=== PATIENT | female | born 1990 | race African-American/Black ===

== ENCOUNTER 2017-06-30 13:24 | Emergency (ER) | payer OTHER, SELFPAY ==
[2017-06-30] MEDS ORDERED: Ketorolac Tromethamine 30 MG/ML VIAL ONE (16:09)
[2017-06-30] MEDS ORDERED: predniSONE 20 MG TAB ONE (16:09)
--- NOTE | 2017-06-30 17:17 | RAD ---
THREE VIEWS OF THE LUMBAR SPINE: INDICATIONS: Worsening back pain. COMPARISON: None. FINDINGS: There are five lumbar type vertebrae. Vertebral body heights and disk spaces are preserved. The SI joints are normal appearing. IMPRESSION: The lumbar spine is radiographically normal. No acute osseous abnormality is evident. POS: POLY
== END 2017-06-30 18:05 | disposition home or self-care (01) ==
LOC: ERS 13:24
DX: M54.17 Radiculopathy, lumbosacral region (principal); E66.01 Morbid (severe) obesity due to excess calories; I10 Essential (primary) hypertension
CPT/HCPCS: 72100; 96372; J1885; J7506

== ENCOUNTER 2017-09-21 22:21 | Inpatient (IN) | payer SELFPAY ==
[2017-09-22 00:04] LABS: ALT (SGPT) 15 U/L (8-55); AST (SGOT) 18 U/L (5-34); Alkaline Phosphatase 91 U/L (40-150); Anion Gap 14 mmol/L (10-20); BUN (Urea Nitrogen) 11 mg/dL (7.0-18.7); Bilirubin, Total 0.6 mg/dL (0.2-1.2); CK (CPK) 114 U/L (29-168); Calc. Creatinine Clearance 0 mL/min (70-130); Carbon Dioxide 27 mmol/L (22-29); Chloride 101 mmol/L (98-107); Estimated GFR-MDRD Greater than 90; Globulin 4.5 g/dL (2.4-3.5); Protein, Total 8.3 g/dL (6.0-8.3)
[2017-09-22 00:12] LABS: #Basophils 0.1 thou/uL (0.0-0.2); #Eosinphils 0.2 thou/uL (0.0-0.7); #Lymphocytes 1.7 thou/uL (1.20-3.40); #Monocytes 0.7 thou/uL (0.11-0.59); #Neutrophils 6.3 thou/uL (1.40-6.50); %Basophils 0.5 % (0.0-1.0); %Eosinophils 2.4 % (0.0-10.0); %Lymphocytes 19.2 % (21.0-51.0); %Monocytes 8.2 % (0.0-10.0); Hematocrit 30.7 % (36.0-47.0); Hypochromia SLIGHT = 6-15 cells (100X) (0-5/hpf); Microcytosis SLIGHT = 6-15 cells (100X) (0-5/hpf); Red Blood Cell (RBC) Count 4.29 mill/uL (4.20-5.40)
[2017-09-22 00:14] LABS: Troponin I Less than 0.010 ng/mL (< 0.028)
[2017-09-22] MEDS ORDERED: Heparin 10,000 UNITS/ 10 ML VIAL SLOW IVP SCH (02:00)
[2017-09-22] MEDS ORDERED: Heparin 25,000 units/D5W 500 ML IV SCH (02:00)
[2017-09-22 02:25] LABS: PTT 30.5 SEC (22.9-36.1); Prothrombin Time 13.4 SEC (12.0-14.7)
[2017-09-22] MEDS ORDERED: Ondansetron ODT 4 MG TAB SL PRN (03:23)
[2017-09-22] MEDS ORDERED: Acetaminophen 325 MG TAB PO PRN (03:23)
[2017-09-22] MEDS ORDERED: Ondansetron HCl/PF 4 MG/2 ML Vial IVP PRN ×2 (03:23→03:55)
[2017-09-22] MEDS ORDERED: Milk Of Magnesia 30 ML UDCUP PO PRN (03:55)
[2017-09-22] MEDS ORDERED: Bisacodyl 10 MG SUPP PR PRN (03:55)
[2017-09-22] MEDS ORDERED: Senokot 8.6 MG TAB PO PRN (03:55)
[2017-09-22] MEDS ORDERED: Calcium Carbonate 500 MG ChewTAB PO PRN (03:55)
[2017-09-22] MEDS ORDERED: Ondansetron ODT 4 MG TAB PO PRN (03:55)
[2017-09-22] MEDS ORDERED: hydrALAZINE 20 MG/ML VIAL SLOW IVP PRN (04:00)
--- NOTE | 2017-09-22 04:27 | HP ---
CHIEF COMPLAINT: Right leg swelling with pain of three weeks' duration. HISTORY OF PRESENT ILLNESS: Patient is a 27-year-old -[place] female with morbid obesity, pr esented to the emergency room with 3 weeks onset of right lower extremity swelling with pain that got worse over the last 2 to 3 days. The pain is sharp in nature 7/10, worse on movement, it is more or less constant. Over the last 24 to 48 hours. She also noticed worsening shortness of breath mainly on mild to moderate exertion. She denies any chest pain, palpitations, lightheadedness, dizziness. No trauma or history of blood clots reported. She denies recent immobilization; however, she is not very active. In the emergency room, initial vital signs showed temperature of 98.1, respirations 20, pulse rate of 116 with a blood pressure of 160/90 with O2 saturation of 95% on room air. Her EKG showed sinus tac hycardia with heart rate 116 with S1, Q3, T3 pattern. Right lower extremity Doppler was positive for DVT involving the distal right femoral vein, popliteal vein and posterior tibial vein. CT angiogram of the chest could not be done due to body habitus. She was started on heparin drip. PAST MEDICAL HISTORY: Hypertension, diet controlled, morbid obesity. Her weight is 232 kilograms. PAST SURGICAL HISTORY: 1. Laparoscopic abdominal surgery. 2. x2. ALLERGIES: Patient denies any drug allergies. CURRENT HOME MEDICATIONS: [id number] iron. SOCIAL HISTORY: Patient currently lives at home. Denies any alcohol, tobacco, or drug use. FAMILY HISTORY: Negative for premature coronary artery disease or hypercoagulable state. REVIEW OF SYSTEMS: The following complete review of systems was negative, unless otherwise mentioned in the HPI or below: CONSTITUTIONAL: Weight loss or gain, ability to conduct usual activities. SKIN: Rash, itching. EYES: Double vision, pain. ENT/MOUTH: Nose bleeding, neck stiffness, pain, tenderness. CARDIOVASCULAR: Palpitations, dyspnea on exertion, orthopnea. RESPIRATORY: Shortness of breath, wheezing, cough, hemoptysis, fever or night sweats. GASTROINTESTINAL: Poor appetite, abdominal pain, heartburn, nausea, vomiting, constipation, or diarr hea. GENITOURINARY: Urgency, frequency, dysuria, nocturia. MUSCULOSKELETAL: Pain, swelling. NEUROLOGIC/PSYCHIATRIC: Anxiety, depression. ALLERGY/IMMUNOLOGIC: Skin rash, bleeding tendency. PHYSICAL EXAMINATION: VITAL SIGNS: As discussed above. GENERAL: A 27-year-old morbidly obese female sitting on the side of the bed in no apparent distress. HEENT: Atraumatic, normocephalic, sclerae are anicteric. Moist mucous membranes. No oral lesion. NECK: Supple, no JVD, no carotid bruit. LUNGS: Clear to auscultation bilaterally, diminished air entry at bases. No wheezing or rales. HEART: S1, S2 present. Tachycardic, no rubs, gallops, or murmurs appreciated. ABDOMEN: Soft, nontender, bowel sounds present. EXTREMITIES: No calf tenderness on the left. Right lower extremity shows edema, which is 2+ with da rkening of the skin close to her ankle. Pedal pulses were palpable. SKIN: As discussed above. LYMPH NODES: No palpable lymph nodes in the neck. PERIPHERAL VASCULAR: Radial pulses palpable bilaterally. MUSCULOSKELETAL: No joint swelling or tenderness. NEUROLOGIC: Grossly nonfocal, moves all four extremities. PSYCHIATRY: Alert, awake, oriented x3. LABORATORY AND X-RAY FINDINGS: CBC showed WBC 9 with hemoglobin 8.9, hematocrit 30.7, platelet count of 278. PT, INR, PTT in normal range. D-dimer was 3.17. Chemistries showed sodium 138, potassium 3.7, chloride 101, bicarb 27, BUN was 11, creatinine 0.77. Troponins were normal. EKG by my review as discussed above. Chest x-ray by my review was negative for infiltrate. Venous Doppler as discuss ed above. IMPRESSION: 1. Suspected pulmonary embolism. 2. Right lower extremity deep vein thrombosis. 3. Abnormal electrocardiogram. 4. Morbid obesity. 5. Chronic anemia. 6. Hypochromic microcytic secondary to iron deficiency anemia. Patient denies any menorrhagia. 7. Hypertension, diet controlled. 8. Morbid obesity. 9. Elevated D-dimer. PLAN: The patient will be monitored on the telemetry unit. She has been started on heparin drip. [facility] park will be consulted. A CT scan of the chest or VQ scan is probably not possible due to body h abitus. We will continue heparin drip. She is currently on heparin drip. For this reason, thrombos is profile will not be done. We will check iron profile. Risks not limited to life threatening blee ding from anticoagulation was discussed with the patient. She stated understanding.
[2017-09-22 06:00] LABS: Iron 21 ug/dL (50-170)
--- NOTE | 2017-09-22 07:37 | RAD ---
RADIOGRAPH CHEST SINGLE VIEW: COMPARISON: 06/30/16. INDICATION: Short of breath. FINDINGS: There is no lobar consolidation identified. Cardiomediastinal silhouette is stable, accentuated by portable technique. Chest is similar in appearance to prior exam. IMPRESSION: No significant interval change. POS: C
--- NOTE | 2017-09-22 07:39 | ULT ---
PRELIMINARY REPORT/[facility]/EMERGENCY AFTER HOURS PROCEDURE: Addendum created by Mauro Su MD on 09/22/2017 1:12 AM Central Time ([place] & [place]) Findings discussed with Andrew Brooks MD at time of interpretation. Initial Report created on 09/22/2017 1:02 AM Central Time ([place] & [place]) EXAM: US Duplex Right Lower Extremity Veins EXAM DATE/TIME: Exam ordered 09/22/2017 12:02 AM CLINICAL HISTORY: 27 years old, female; Pain and signs and symptoms; Edema, localized; Lower extremity, right; Leg, low er; Patient HX: Rt leg pain/edema x 1 month TECHNIQUE: Real-time ultrasound scan of the veins of the right lower extremity with color Doppler flow, spectral waveform analysis and compression. COMPARISON: No relevant prior studies available. FINDINGS: Deep veins: Partially occlusive thrombosis of the distal right femoral vein, popliteal vein, and post erior tibial vein. Common femoral vein and proximal and mid superficial femoral vein are normal. Superficial veins: Unremarkable. No thrombus in the visualized great saphenous vein. Soft tissues: No acute findings. No popliteal cyst. Other findings: Study technically difficult due to patient body habitus. IMPRESSION: 1. Study technically difficult due to patient body habitus. 2. Partially occlusive thrombosis of the distal right femoral vein, popliteal vein, and posterior tib ial vein. Thank you for allowing us to participate in the care of your patient. Dictated and Authenticated by: Mauro Su MD 09/22/2017 1:02 AM Central Time ([place] & [place]) FINAL REPORT RIGHT LOWER EXTREMITY DOPPLER VENOUS ULTRASOUND: Date: 09/22/17 FINDINGS/IMPRESSION: I agree with the above provided preliminary interpretation from [facility]. Partially occlusive thrombus is demonstrated at the venous structures of the right lower extremity, as detailed above.
[2017-09-22 08:11] VITALS: BMI 79.5
[2017-09-22] MEDS: Ferrous Sulfate 325 MG TAB PO SCH ×2 (08:14→17:21)
[2017-09-22] MEDS: Docusate 100 MG CAP PO SCH ×2 (08:14→22:11)
[2017-09-22] MEDS: Famotidine 20 MG TAB PO SCH ×2 (08:14→22:11)
--- NOTE | 2017-09-22 09:11 | PDOC.EVN ---
Event Note - Event Note Event Note: Chart reviewed. Pt seen. No chest pain now. Will follow.
--- NOTE | 2017-09-22 11:50 | CON ---
DATE OF CONSULTATION: 09/22/2017 HISTORY: She is a morbidly obese 27-year-old female who presented to the ER with ri ght calf pain of about 3 weeks duration. She also complained of some shortness of breath at that diogo e. She is 231 pounds. Ultrasound of the leg showed a partial occlusion of the right femoral vein. She was started on IV heparin. Because of her morbid obesity she could not have either CT on a [employer] sc an done. Though she says she has been relatively healthy. She works for a [employer]. She gained weight aft er she had her last child who is 3 years old. Nonsmoker, no history of asthma or TB. PAST MEDICAL HISTORY: Pertinent for hypertension, anemia. PAST SURGICAL HISTORY: Lap, x2. MEDICATIONS: From home, an unknown blood pressure medication. ALLERGIES: None. SOCIAL/FAMILY HISTORY: Unremarkable. PHYSICAL EXAMINATION: GENERAL: She appears to be in no distress. VITAL SIGNS: Sats are 94% on room air, temperature 98, pulse 102, blood pressure 130/70. CHEST: Reveals decreased breath sounds, no wheezing. CARDIAC: Normal S1, S2, no gallops. ABDOMEN: Soft, no masses. LABORATORY: White count 9000, H&H 10 and 30, platelet count is 278. Electrolytes are normal. Ultrasound as noted, the right leg shows partially occlusive thrombus of the distal right femoral vei n. Left leg was unremarkable. IMPRESSION: 1. Right leg deep venous thrombosis. 2. Morbid obesity. 3. Hypertension. PLAN: She is too big to undergo a CT of the chest. Though we will call them again to see whether she will qualify. She is going to need a minimum of 6 months anticoagulation. I will discuss and follow.
[2017-09-22] MEDS: Heparin 25,000 units/D5W 500 ML IVPB SCH ×2 (12:32→23:02)
[2017-09-22] MEDS: Heparin 10,000 UNITS/ 10 ML VIAL SLOW IVP SCH (12:53)
[2017-09-22 18:25] LABS: PTT 211.6 SEC (22.9-36.1)
[2017-09-22 21:00] LABS: PTT 51.3 SEC (22.9-36.1); Prothrombin Time 14.3 SEC (12.0-14.7)
[2017-09-22] MEDS: Acetaminophen 325 MG TAB PO PRN (22:22)
[2017-09-23 03:21] LABS: #Eosinphils 0.2 thou/uL (0.0-0.7); #Lymphocytes 2.9 thou/uL (1.20-3.40); #Neutrophils 6.1 thou/uL (1.40-6.50); %Basophils 0.3 % (0.0-1.0); %Eosinophils 2.3 % (0.0-10.0); %Lymphocytes 28.2 % (21.0-51.0); %Monocytes 9.8 % (0.0-10.0); Hematocrit 25.7 % (36.0-47.0); Mean Platelet Volume 9.8 fL (7.4-10.4); Red Blood Cell (RBC) Count 3.59 mill/uL (4.20-5.40); White Blood Cell (WBC) Count 10.2 thou/uL (4.8-10.8)
[2017-09-23 03:35] LABS: Anion Gap 11 mmol/L (10-20); BUN (Urea Nitrogen) 8 mg/dL (7.0-18.7); Calc. Creatinine Clearance 414 mL/min (70-130); Calcium 8.8 mg/dL (7.8-10.44); Carbon Dioxide 29 mmol/L (22-29); Chloride 102 mmol/L (98-107); Estimated GFR-MDRD Greater than 90
[2017-09-23] MEDS: Heparin 10,000 UNITS/ 10 ML VIAL SLOW IVP SCH ×2 (04:10→17:10)
[2017-09-23] MEDS: Famotidine 20 MG TAB PO SCH ×2 (08:42→21:35)
[2017-09-23] MEDS: Ferrous Sulfate 325 MG TAB PO SCH ×2 (08:42→17:12)
[2017-09-23] MEDS: Docusate 100 MG CAP PO SCH ×2 (08:42→21:34)
[2017-09-23] MEDS: Heparin 25,000 units/D5W 500 ML IVPB SCH ×2 (09:44→22:36)
[2017-09-23 10:12] LABS: PTT 129.2 SEC (22.9-36.1)
--- NOTE | 2017-09-23 11:17 | PDOC.PN ---
- Subjective Encounter Start Date: 09/23/17 Encounter Start Time: 11:15 Pt seen for followup re: DVT. Denies chest pain or shortness of breath. - Objective Resuscitation Status: Resuscitation Status FULL:Full Resuscitation MAR Reviewed: Yes Vital Signs & Weight: Vital Signs (12 hours) Temp Pulse Resp BP Pulse Ox 09/23/17 08:00 98 F 108 H 16 96 09/23/17 07:57 98 F 108 H 16 133/73 96 09/23/17 04:20 97.9 F 104 H 16 121/61 94 L 09/23/17 00:15 95 09/23/17 00:00 99.1 F 118 H 12 139/71 95 Weight Weight 507 lb 11.2 oz I&O: 09/22/17 09/23/17 09/24/17 06:59 06:59 06:59 Intake Total 641 2007 Output Total 250 1050 Balance 391 958 Result Diagrams: 09/23/17 03:06 09/23/17 03:06 Additional Labs: Accuchecks 09/23/17 06:14 POC Glucose 125 H EKG Reviewed by me: Yes (Tele: sinus tachycardia) Phys Exam - Physical Examination Morbid obesity HEENT: moist MMs Neck: supple Respiratory: clear to auscultation bilateral S1, S2, reg, tachy Gastrointestinal: soft Musculoskeletal: pulses present Neurological: moves all 4 limbs Psychiatric: normal affect Skin: no rash Dx/Plan (1) DVT (deep venous thrombosis) Code(s): I82.409 - ACUTE EMBOLISM AND THOMBOS UNSP DEEP VN UNSP LOWER EXTREMITY Status: Acute (2) Pulmonary embolism Code(s): I26.99 - OTHER PULMONARY EMBOLISM WITHOUT ACUTE COR PULMONALE Status : Suspected (3) Sinus tachycardia Code(s): R00.0 - TACHYCARDIA, UNSPECIFIED Status: Acute (4) Chronic hypertension Code(s): I10 - ESSENTIAL (PRIMARY) HYPERTENSION Status: Chronic (5) Morbid obesity Code(s): E66.01 - MORBID (SEVERE) OBESITY DUE TO EXCESS CALORIES Status: Chronic - Plan PT/OT, out of bed/ambulate * . Had a lengthy discussion wih patient. Awaiting case management input re; financial support for anticoagulant therapy. Start pt on apixaban (family members willing to help her financially to some extent). Check 2D echo to r/o RV strain. Review of Systems - Review of Systems Respiratory: negative: Cough, Dry, Shortness of Breath, Hemoptysis, SOB with Excertion, Pleuritic Pain, Sputum, Wheezing Cardiovascular: negative: Chest Pain, Palpitations, Orthopnea, Paroxysmal Noc. Dyspnea, Edema, Light Headedness - Medications/Allergies Allergies/Adverse Reactions: Allergies Allergy/AdvReac Type Severity Reaction Status Date / Time No Known Allergies Allergy Verified 09/22/17 04:09 Medications: Current Medications Acetaminophen (Tylenol) 650 mg PO Q4H PRN PRN Reason: Headache/Fever or Pain Last Admin: 09/22/17 22:22 Dose: 650 mg Apixaban (Eliquis) 10 mg PO BID [facility] Bisacodyl (Dulcolax) 10 mg OR Q24H PRN PRN Reason: Constipation Calcium Carbonate (Tums) 1,000 mg PO Q4H PRN PRN Reason: Heartburn or Indigestion Docusate Sodium (Colace) 100 mg PO BID [facility] Last Admin: 09/23/17 08:42 Dose: 100 mg Famotidine (Pepcid) 20 mg PO BID [facility] Last Admin: 09/23/17 08:42 Dose: 20 mg Ferrous Sulfate (Feosol) 325 mg PO BID[facility] Last Admin: 09/23/17 08:42 Dose: 325 mg Heparin Sodium (Porcine) (Heparin 1,000 Units/Ml (10 Ml)) 0 units SLOW IVP [facility] PRN Reason: Protocol Stop: 09/23/17 21:00 Last Admin: 09/23/17 04:10 Dose: 10 ml Hydralazine HCl (Apresoline) 10 mg SLOW IVP Q4H PRN PRN Reason: SBP Greater Than 180 Heparin Sodium/Dextrose (Heparin 25,000 Units/D5w 500 Ml) 500 mls @ 0 mls/hr IVPB INF [facility]; Per Protocol PRN Reason: Protocol Last Admin: 09/23/17 09:44 Dose: 500 mls Magnesium Hydroxide (Milk Of Magnesium) 30 ml PO DAILYPRN PRN PRN Reason: Constipation Ondansetron HCl (Zofran Odt) 4 mg PO Q6H PRN PRN Reason: Nausea/Vomiting Ondansetron HCl (Zofran) 4 mg IVP Q6H PRN PRN Reason: Nausea/Vomiting Senna (Senokot) 2 tab PO HSPRN PRN PRN Reason: Constipation Sodium Chloride (Flush - Normal Saline) 10 ml IVF Q12HR [facility] Last Admin: 09/23/17 08:43 Dose: 10 ml Sodium Chloride (Flush - Normal Saline) 10 ml IVF PRN PRN PRN Reason: Saline Flush
--- NOTE | 2017-09-23 14:53 | PRG ---
DATE OF SERVICE: 09/23/2017 SUBJECTIVE: She is better. She is taking showers. PHYSICAL EXAMINATION: VITAL SIGNS: Sats 96% room air, respirations 18, temperature 98, blood pressure 130/73. CHEST: Reveals decreased breath sounds, no wheezing. CARDIAC: Normal S1, S2. ABDOMEN: Soft. No masses. LABORATORY DATA: White count 10,000, hemoglobin and hematocrit 7 and 25, platelet count 206, PT 129. IMPRESSION: Morbid obesity, deep venous thrombosis, probably pulmonary embolism. PLAN: I discussed with pharmacy can put her on Eliquis 10 mg twice a day, minimum of six months. DISPOSITION: Home tomorrow.
[2017-09-23 16:38] LABS: PTT 38.8 SEC (22.9-36.1); Prothrombin Time 14.1 SEC (12.0-14.7)
[2017-09-23] MEDS: Apixaban 5 MG TAB PO SCH (21:34)
[2017-09-23 22:58] LABS: Prothrombin Time 14.9 SEC (12.0-14.7)
[2017-09-23 22:59] LABS: PTT 96.1 SEC (22.9-36.1)
[2017-09-24] MEDS: Acetaminophen 325 MG TAB PO PRN (00:33)
[2017-09-24 06:05] LABS: Hematocrit 25.7 % (36.0-47.0)
[2017-09-24 06:09] LABS: Prothrombin Time 15.8 SEC (12.0-14.7)
[2017-09-24 06:10] LABS: PTT 91.9 SEC (22.9-36.1)
[2017-09-24] MEDS: Famotidine 20 MG TAB PO SCH (08:22)
[2017-09-24] MEDS: Apixaban 5 MG TAB PO SCH (08:22)
[2017-09-24] MEDS: Ferrous Sulfate 325 MG TAB PO SCH ×2 (08:22→16:09)
[2017-09-24] MEDS: Heparin 25,000 units/D5W 500 ML IVPB SCH (08:23)
[2017-09-24] MEDS: Docusate 100 MG CAP PO SCH (08:23)
[2017-09-24 10:46] LABS: Bilirubin Negative (Negative); Blood, Urine Negative (Negative); Glucose, Urine (Dipstick) Negative (Negative); Ketone, Urine Negative (Negative); Nitrite Negative (Negative); Protein, Urine (Dipstick) 100 mg/dL (Neg-Trace)
[2017-09-24 10:48] LABS: Bacteria/HPF 1+ HPF (None Seen); Hyaline Casts/LPF 0-3 HYALINE CAST LPF (0-3 Hyaline); Squamous Epithelial 0-3 HPF (0-3); WBC/HPF 0-3 HPF (0-3)
[2017-09-24 13:01] VITALS: TEMP 98.1
--- NOTE | 2017-09-24 15:08 | PDOC.PN ---
- Subjective Encounter Start Date: 09/24/17 Encounter Start Time: 11:20 Pt seen for followup re: DVT. Denies chest pain, shortness of breath, fevers or chills. - Objective Resuscitation Status: Resuscitation Status FULL:Full Resuscitation MAR Reviewed: Yes Vital Signs & Weight: Vital Signs (12 hours) Temp Pulse Resp BP Pulse Ox 09/24/17 12:55 98.1 F 105 H 16 140/78 95 09/24/17 08:00 99.3 F 106 H 14 94 L 09/24/17 07:52 99.3 F 106 H 14 138/60 94 L 09/24/17 04:00 98.7 F 108 H 22 H 141/65 H 98 Weight Weight 507 lb 3.2 oz I&O: 09/23/17 09/24/17 09/25/17 06:59 06:59 06:59 Intake Total 2007 2742.4 Output Total 1050 2020 Balance 958 722.4 Result Diagrams: 09/24/17 05:26 09/23/17 03:06 Phys Exam - Physical Examination Morbid obesity HEENT: moist MMs Neck: supple Respiratory: clear to auscultation bilateral Cardiovascular: RRR Gastrointestinal: soft Musculoskeletal: no edema Neurological: moves all 4 limbs Psychiatric: normal affect Skin: no rash Dx/Plan (1) DVT (deep venous thrombosis) Code(s): I82.409 - ACUTE EMBOLISM AND THOMBOS UNSP DEEP VN UNSP LOWER EXTREMITY Status: Acute (2) Pulmonary embolism Code(s): I26.99 - OTHER PULMONARY EMBOLISM WITHOUT ACUTE COR PULMONALE Status : Suspected (3) Sinus tachycardia Code(s): R00.0 - TACHYCARDIA, UNSPECIFIED Status: Acute (4) Chronic hypertension Code(s): I10 - ESSENTIAL (PRIMARY) HYPERTENSION Status: Chronic (5) Morbid obesity Code(s): E66.01 - MORBID (SEVERE) OBESITY DUE TO EXCESS CALORIES Status: Chronic - Plan * . Pt had fever yesterday. Check chest x-rays and urine studies to r/o infection. Continue apixaban. Sinus tachycardia is better. 2D echo report noted. Likely home later today. Review of Systems - Review of Systems Respiratory: negative: Cough, Dry, Shortness of Breath, Hemoptysis, SOB with Excertion, Pleuritic Pain, Sputum, Wheezing Gastrointestinal: negative: Nausea, Vomiting, Abdominal Pain, Diarrhea, Constipation, Melena, Hematochezia Genitourinary: negative: Dysuria, Frequency, Incontinence, Hematuria, Retention - Medications/Allergies Allergies/Adverse Reactions: Allergies Allergy/AdvReac Type Severity Reaction Status Date / Time No Known Allergies Allergy Verified 09/22/17 04:09 Medications: Current Medications Acetaminophen (Tylenol) 650 mg PO Q4H PRN PRN Reason: Headache/Fever or Pain Last Admin: 09/24/17 00:33 Dose: 650 mg Apixaban (Eliquis) 10 mg PO BID [facility] Last Admin: 09/24/17 08:22 Dose: 10 mg Bisacodyl (Dulcolax) 10 mg [place] Q24H PRN PRN Reason: Constipation Calcium Carbonate (Tums) 1,000 mg PO Q4H PRN PRN Reason: Heartburn or Indigestion Docusate Sodium (Colace) 100 mg PO BID [facility] Last Admin: 09/24/17 08:23 Dose: 100 mg Famotidine (Pepcid) 20 mg PO BID [facility] Last Admin: 09/24/17 08:22 Dose: 20 mg Ferrous Sulfate (Feosol) 325 mg PO BID[facility] Last Admin: 09/24/17 08:22 Dose: 325 mg Hydralazine HCl (Apresoline) 10 mg SLOW IVP Q4H PRN PRN Reason: SBP Greater Than 180 Magnesium Hydroxide (Milk Of Magnesium) 30 ml PO DAILYPRN PRN PRN Reason: Constipation Ondansetron HCl (Zofran Odt) 4 mg PO Q6H PRN PRN Reason: Nausea/Vomiting Ondansetron HCl (Zofran) 4 mg IVP Q6H PRN PRN Reason: Nausea/Vomiting Senna (Senokot) 2 tab PO HSPRN PRN PRN Reason: Constipation Sodium Chloride (Flush - Normal Saline) 10 ml IVF Q12HR [facility] Last Admin: 09/24/17 08:23 Dose: 10 ml Sodium Chloride (Flush - Normal Saline) 10 ml IVF PRN PRN PRN Reason: Saline Flush
--- NOTE | 2017-09-24 15:25 | RAD ---
TWO VIEW CHEST: History: Question pneumonia. FINDINGS: Poor inspiration. No definite infiltrate. IMPRESSION: No definite infiltrate identified. There is relatively poor inspiration which degrades the study. POS: JAIDA
--- NOTE | 2017-09-24 16:54 | PRG ---
DATE OF SERVICE: 09/24/2017 SUBJECTIVE: Ms. Erwin is , morbidly obese female with a BMI of 79. Said she is better. Legs are less swollen. OBJECTIVE: VITAL SIGNS: Sats 94% on room air, temperature 99, pulse 106, blood pressure is 90/60. CHEST: No wheezing. CARDIAC: Normal S1, S2. No gallops. ABDOMEN: Soft, no masses. LABORATORY DATA: White count is 7,000, hemoglobin and hematocrit 7.4 and 25, platelet count is normal. IMPRESSION: Deep venous thrombosis, possible pulmonary embolism. _prohibitive VQ scan or CT for her weight. PLAN: Eliquis 10 twice a day, to be discharged. Follow up with her primary care physician. She is encouraged to lose considerable weight. She may want to consider seeing a weight loss surgeon. A minimum of 3 months to 6 months of anticoagulation. DANUTA
--- NOTE | 2017-09-24 22:16 | DIS ---
DATE OF ADMISSION: 09/22/2017 DATE OF DISCHARGE: 09/24/2017 PRIMARY CARE PROVIDER: [facility]. CONDITION OF PATIENT AT THE TIME OF DISCHARGE: Stable. I assessed Ms. Erwin on the day of discharge . Please refer to my daily progress note for further information about this [id number] encounter. DISCHARGE DIAGNOSES: 1. Deep vein thrombosis. 2. Suspected pulmonary embolism. 3. Mild mitral regurgitation, mild tricuspid regurgitation, and left ventricular ejection fraction o f 50% to 55% with normal right ventricular size and function on 2D echocardiogram done on 09/23/2017. HOSPITAL COURSE: Ms. Erwin is a pleasant 27-year-old lady who was admitted to [facility] on 09/22/2017 for deep vein thrombosis and suspected pulmonary embolism. Vascular ultras ound done on the day of admission showed partially occlusive thrombus of the distal right femoral vei n, popliteal vein and posterior tibial vein. She was initially treated with heparin drip, subsequent ly started on apixaban. She was seen by Pulmonology Service, Dr. Giordano. CT angiogram of the chest and VQ scan could not be obtained because of her body habitus. She needs t o be on anticoagulation for a minimum of six months. She spiked a fever on 09/22/2017. Urine studies were unremarkable. Chest x-ray also did not show an y pulmonary infiltrates. On the day of discharge, she has hemoglobin 7.4. It was stable from 09/23/2017. On 09/23/2017, she had a creatinine of 0.73, normal sodium and normal potassium. She was seen by case management and Pulmonology Services during this hospitalization. DISCHARGE MEDICATIONS: Include apixaban 10 mg 2 times a day until the morning dose of 09/30/2017 fol lowed by 5 mg 2 times a day and Ferralet 90 one tablet daily. She did not have a primary care provider. She is establishing care with [facility]. She is advised to follow up with them in 3 days time. DISCHARGE DESTINATION: Home. TOTAL AMOUNT OF TIME SPENT COORDINATING THIS DISCHARGE: 32 minutes.
[2017-09-24 23:24] VITALS: BP 137/75
[2017-09-29] MEDS ORDERED: Apixaban 5 MG TAB PO SCH (21:00)
== END 2017-09-24 16:35 | disposition home or self-care (01) | DRG 299 ==
LOC: ERS 22:21 → 2NO 09-22 02:58
PROVIDERS: ADMIT Internal Medicine; ATTEND Internal Medicine
DX: I82.411 Acute embolism and thrombosis of right femoral vein (principal); I26.99 Other pulmonary embolism without acute cor pulmonale; Z68.45 Body mass index [BMI] 70 or greater, adult; I82.431 Acute embolism and thrombosis of right popliteal vein; E66.01 Morbid (severe) obesity due to excess calories; I08.1 Rheumatic disorders of both mitral and tricuspid valves; I10 Essential (primary) hypertension; I82.441 Acute embolism and thrombosis of right tibial vein; D50.9 Iron deficiency anemia, unspecified; R00.0 Tachycardia, unspecified
CPT/HCPCS: 36415; 36416; 71010; 71020; 80048; 80053; 81003; 81015; 82553; 82728; 83540; 83550; 84484; 84703; 85014; 85018; 85025; 85049; 85379; 85610; 85730; 87086; 93005; 93306; 96374; 96376; A4216; G8978-GP-CK; G8979-GP-CK; G8980-GP-CK; J1644

== ENCOUNTER 2020-07-29 09:34 | Emergency (ER) | payer BC, SELFPAY ==
[2020-07-29 10:41] LABS: Bacteria/HPF 3+ HPF (None Seen); Bilirubin Negative (Negative); Blood, Urine 1+ (Negative); Clarity Turbid (Clear); Glucose, Urine (Dipstick) 70 mg/dL (Negative); Ketone, Urine Negative (Negative); Leukocyte 500 Leu/uL (Negative); Nitrite Negative (Negative); Protein, Urine (Dipstick) 600 mg/dL (Neg-Trace); RBC/HPF Greater than 50 HPF (0-3); Specific Gravity, Urine 1.021 (1.002-1.036); Urobilinogen Normal mg/dL (Less than 2); WBC/HPF Greater than 50 HPF (0-3); pH, Urine 6.5 (5.0-9.0)
[2020-07-29 10:43] LABS: Hemoglobin 9.6 g/dL (12.0-16.0); Mean Corpuscular Hemoglobin 28.5 pg (27.0-31.0); Mean Platelet Volume 7.4 fL (7.4-10.4); Platelet Count 216 thou/uL (130-400); RBC Distribution Width 16.6 % (11.5-14.5); Red Blood Cell (RBC) Count 3.35 mill/uL (4.20-5.40); White Blood Cell (WBC) Count 6.1 thou/uL (4.8-10.8)
--- NOTE | 2020-07-29 10:43 | RAD ---
EXAM: Single view of the chest HISTORY: Dyspnea and bilateral leg swelling COMPARISON: 09/22/2017 FINDINGS: Single view of the chest shows an enlarged but stable cardiomediastinal silhouette. There i s no evidence of consolidation, mass, or pleural effusion. No acute osseous abnormality. IMPRESSION: Cardiomegaly
[2020-07-29 10:53] LABS: BHCG - Serum Negative (NEGATIVE); Pregs Control Background? CLEAR/WHITE (CLR/WHITE); Pregs Control Bar Appear? YES (CONTROL BAR)
[2020-07-29 11:01] LABS: ALT (SGPT) 18 U/L (8-55); AST (SGOT) 25 U/L (5-34); Albumin 2.3 g/dL (3.5-5.0); Alkaline Phosphatase 103 U/L (40-110); Anion Gap 10 mmol/L (10-20); BUN (Urea Nitrogen) 10 mg/dL (7.0-18.7); Bilirubin, Total 0.2 mg/dL (0.2-1.2); Calc. Creatinine Clearance 0 mL/min (70-130); Calcium 7.6 mg/dL (7.8-10.44); Carbon Dioxide 24 mmol/L (22-29); Chloride 108 mmol/L (98-107); Estimated GFR-MDRD 57; Globulin 4.6 g/dL (2.4-3.5); Glucose 105 mg/dL (70-105); Protein, Total 6.9 g/dL (6.0-8.3); Sodium 138 mmol/L (136-145)
[2020-07-29 11:03] LABS: Band 2 % (5-11); Eosinophils 3 % (0-10); Lymphocytes 48 % (21-51); MDiff Complete? YES; Monocytes 9 % (0-10); Neutrophil 37 % (42-75); Platelet Morphology Comment Appears Adequate; Polychromasia SLIGHT = 2-3 cells (100X) (0-2/hpf); Reactive Lymphocytes 1 % (0-10); Rouleaux Formation SLIGHT = 1-5 cells (100X) (None Seen)
--- NOTE | 2020-07-29 11:16 | ULT ---
EXAM: Bilateral lower extremity venous ultrasound HISTORY: Pain. Bilateral lower extremity swelling. Past medical history of right leg DVT. COMPARISON: None TECHNIQUE: Multiplanar grayscale and color Doppler images were obtained in a bilateral lower extremit y venous ultrasound. Spectral analysis of the Doppler waveforms were performed. FINDINGS: The bilateral common femoral vein, profunda femoral veins, superficial femoral veins, and p opliteal veins are normal in appearance without visible thrombus. These vessels demonstrate normal compression, flow, and augmentation. The bilateral posterior tibial veins, profunda femoral veins and greater saphenous veins are patent w ithout evidence of DVT. IMPRESSION: No evidence of DVT in the left or right lower extremity.
== END 2020-07-29 13:40 | disposition home or self-care (01) ==
LOC: ERS 09:34
DX: N39.0 Urinary tract infection, site not specified (principal); I10 Essential (primary) hypertension; M79.89 Other specified soft tissue disorders; D50.9 Iron deficiency anemia, unspecified
CPT/HCPCS: 71045; 80053; 81003; 81015; 83880; 84484; 84703; 85025; 93005; 93970

== ENCOUNTER 2021-06-25 21:31 | Inpatient (IN) | payer SELFPAY ==
[2021-06-25 22:54] LABS: %Lymphocytes 19.4 % (21.0-51.0); %Monocytes 11.7 % (0.0-10.0); %Neutrophils 68.6 % (42.0-75.0); Actual Bicarbonate (HCO3v) 21 mEq/L (22-28); Analyzer IN Cardio ER; Base Excess -3.5 mEq/L (-2.0 to +3.0); Calcium, Ionized (venous) 1.09 mmol/L (1.16-1.32); Chloride (VBG) 93 mmol/L (98-106); Hemoglobin 10.2 g/dL (12.0-16.0); Hemoglobin (Hb) 11.3 g/dL (11.7-15.5); Mean Corpuscular HGB CONC 28.4 g/dL (32.0-36.0); Mean Corpuscular Hemoglobin 25.4 pg (27.0-31.0); Mean Corpuscular Volume 89.6 fL (78.0-98.0); Mean Platelet Volume 8.5 fL (7.4-10.4); Platelet Count 304 thou/uL (130-400); RBC Distribution Width 17.6 % (11.5-14.5); Red Blood Cell (RBC) Count 4.02 mill/uL (4.20-5.40); Sodium 131.6 mmol/L (133-146); White Blood Cell (WBC) Count 9.8 thou/uL (4.8-10.8); pH (venous) 7.38 (7.32-7.43)
[2021-06-25 22:55] LABS: #Lymphocytes 1.9 thou/uL (1.20-3.40); #Monocytes 1.2 thou/uL (0.11-0.59); #Neutrophils 6.8 thou/uL (1.40-6.50); %Eosinophils 0.3 % (0.0-10.0)
[2021-06-25 23:28] LABS: Bilirubin Negative (Negative); Blood, Urine 1+ (Negative); Clarity Clear (Clear); Glucose, Urine (Dipstick) Greater than 1000 mg/dL (Negative); Ketone, Urine 20 mg/dL (Negative); Leukocyte 250 Leu/uL (Negative); Nitrite Negative (Negative); Protein, Urine (Dipstick) 70 mg/dL (Neg-Trace); Specific Gravity, Urine 1.027 (1.002-1.036); Urobilinogen Normal mg/dL (Less than 2); pH, Urine 5.5 (5.0-9.0)
[2021-06-25 23:29] LABS: Bacteria/HPF 1+ HPF (None Seen); Squamous Epithelial 0-3 HPF (0-3); WBC/HPF 21-50 HPF (0-3); Yeast-Budding Rare HPF (None Seen)
[2021-06-25 23:40] LABS: Magnesium 2.5 mg/dL (1.6-2.6)
[2021-06-25 23:45] LABS: Albumin 2.8 g/dL (3.5-5.0)
[2021-06-25 23:46] LABS: Chloride 90 mmol/L (98-107); Potassium 5.3 mmol/L (3.5-5.1)
[2021-06-25 23:47] LABS: Calcium 8.3 mg/dL (7.8-10.44); Sodium 129 mmol/L (136-145)
[2021-06-25 23:48] LABS: Globulin 4.8 g/dL (2.4-3.5); Protein, Total 7.6 g/dL (6.0-8.3)
[2021-06-25 23:49] LABS: Anion Gap 22 mmol/L (10-20); Carbon Dioxide 22 mmol/L (22-29)
[2021-06-25 23:50] LABS: Bilirubin, Total 0.5 mg/dL (0.2-1.2)
[2021-06-25 23:51] LABS: Alkaline Phosphatase 141 U/L (40-110); Calc. Creatinine Clearance 0 mL/min (70-130)
[2021-06-25 23:52] LABS: BUN (Urea Nitrogen) 24 mg/dL (7.0-18.7)
[2021-06-25 23:53] LABS: ALT (SGPT) 19 U/L (8-55); AST (SGOT) 23 U/L (5-34)
[2021-06-25 23:58] LABS: Phosphorus 4.8 mg/dL (2.3-4.7)
[2021-06-26] MEDS ORDERED: INSULIN REGULAR IN 0.9 % NACL 100 UNIT/100 ML BAG ONE ×2 (01:37→10:33)
[2021-06-26] MEDS ORDERED: Insulin Regular 300 UNITS/3 ML VIAL ONE (01:57)
[2021-06-26 08:38] LABS: Anion Gap 18 mmol/L (10-20); BUN (Urea Nitrogen) 22 mg/dL (7.0-18.7); Calc. Creatinine Clearance 0 mL/min (70-130); Calcium 8.2 mg/dL (7.8-10.44); Carbon Dioxide 26 mmol/L (22-29); Chloride 102 mmol/L (98-107); Glucose 511 mg/dL (70-105); Potassium 4.7 mmol/L (3.5-5.1); Sodium 141 mmol/L (136-145)
[2021-06-26] MEDS ORDERED: NS 0.9% w/ 20 MEQ KCL 1,000 ML IV PRN ×2 (08:38)
[2021-06-26] MEDS ORDERED: Electrolyte Replacement Protocol 1 EACH IVPB SCH (08:38)
[2021-06-26] MEDS ORDERED: Dextrose 5 %-0.45 % NaCl 1,000 ML IV PRN (08:38)
[2021-06-26] MEDS ORDERED: Sodium Chloride 0.9% 1,000 ML IV PRN ×4 (08:38)
[2021-06-26] MEDS ORDERED: D5 1/2 NS w/20 mEq KCL 1,000 ML IV PRN (08:38)
[2021-06-26 08:40] LABS: Glucose 879 mg/dL (70-105)
[2021-06-26 08:41] LABS: Glucose 602 mg/dL (70-105)
[2021-06-26 08:43] LABS: Glucose 1192 mg/dL (70-105)
[2021-06-26] MEDS ORDERED: HUMULIN R 100 UNITS in Sodium Chloride 0.9% 100 ML IVPB SCH (08:45)
[2021-06-26 08:46] LABS: Critical Call Chemistry BUZZARD
[2021-06-26 08:47] LABS: Glucose 457 mg/dL (70-105)
[2021-06-26] MEDS ORDERED: Dextrose 50% Abboject 50 ML SYRINGE ONE (08:47)
[2021-06-26] MEDS ORDERED: levETIRAcetam in NS 0 ML ONE (09:00)
[2021-06-26 09:59] LABS: Anion Gap 13 mmol/L (10-20); BUN (Urea Nitrogen) 21 mg/dL (7.0-18.7); Calc. Creatinine Clearance 0 mL/min (70-130); Calcium 8.3 mg/dL (7.8-10.44); Carbon Dioxide 31 mmol/L (22-29); Chloride 101 mmol/L (98-107); Glucose 444 mg/dL (70-105); Potassium 4.3 mmol/L (3.5-5.1); Sodium 141 mmol/L (136-145)
[2021-06-26 11:53] LABS: Lactic Acid 2.8 mmol/L (0.5-2.2)
[2021-06-26] MEDS ORDERED: hydrALAZINE 25 MG TAB PO PRN (11:59)
[2021-06-26] MEDS ORDERED: Dextrose 5% in Water 1,000 ML IV PRN (12:09)
[2021-06-26] MEDS ORDERED: Dextrose 50% Abboject 50 ML SYRINGE SLOW IVP PRN (12:09)
[2021-06-26] MEDS ORDERED: Lantus 1000 UNITS/10 ML VIAL SC SCH (12:09)
[2021-06-26 12:58] VITALS: BMI 81.4
[2021-06-26] MEDS: cefTRIAXone\\ROCEPHIN 1 GM in Sodium Chloride 0.9% 100 ML IVPB SCH (14:22)
[2021-06-26] MEDS: Sodium Chloride 0.9% 1,000 ML IV SCH ×2 (14:22→23:46)
[2021-06-26] MEDS: HumaLOG 300 UNITS/3 ML VIAL SC PRN ×2 (16:45→20:59)
[2021-06-26 17:15] LABS: Anion Gap 14 mmol/L (10-20); BUN (Urea Nitrogen) 19 mg/dL (7.0-18.7); Calc. Creatinine Clearance 163 mL/min (70-130); Calcium 7.8 mg/dL (7.8-10.44); Carbon Dioxide 27 mmol/L (22-29); Chloride 101 mmol/L (98-107); Glucose 436 mg/dL (70-105); Potassium 4.3 mmol/L (3.5-5.1); Sodium 138 mmol/L (136-145)
[2021-06-26] MEDS: Lantus 1000 UNITS/10 ML VIAL SC SCH (20:59)
[2021-06-26] MEDS: hydrALAZINE 20 MG/ML VIAL SLOW IVP PRN (20:59)
[2021-06-26] MEDS ORDERED: Insulin Glargine 15 UNITS in Pre-Filled Syringe 1 EACH SC SCH (21:00)
[2021-06-27] MEDS: hydrALAZINE 20 MG/ML VIAL SLOW IVP PRN ×2 (03:16→11:49)
[2021-06-27 04:12] LABS: Anion Gap 12 mmol/L (10-20); BUN (Urea Nitrogen) 16 mg/dL (7.0-18.7); Calc. Creatinine Clearance 193 mL/min (70-130); Calcium 7.4 mg/dL (7.8-10.44); Carbon Dioxide 27 mmol/L (22-29); Chloride 100 mmol/L (98-107); Glucose 419 mg/dL (70-105); Potassium 4.2 mmol/L (3.5-5.1); Sodium 135 mmol/L (136-145)
[2021-06-27] MEDS: HumaLOG 300 UNITS/3 ML VIAL SC PRN ×4 (06:18→20:46)
[2021-06-27] MEDS ORDERED: glipiZIDE 5 MG TAB PO SCH (07:30)
[2021-06-27] MEDS: metFORMIN 500 MG TAB PO SCH ×3 (09:04→20:46)
[2021-06-27] MEDS: glipiZIDE 5 MG TAB PO SCH ×2 (09:04→15:45)
[2021-06-27] MEDS: Lantus 1000 UNITS/10 ML VIAL SC SCH ×2 (09:05→20:46)
[2021-06-27] MEDS: Sodium Chloride 0.9% 1,000 ML IV SCH ×2 (09:05→19:42)
[2021-06-27] MEDS: cefTRIAXone\\ROCEPHIN 1 GM in Sodium Chloride 0.9% 100 ML IVPB SCH (11:48)
[2021-06-27] MEDS ORDERED: Nystatin Powder 15 GM BOT TOP PRN (12:12)
[2021-06-27] MEDS ORDERED: Amlodipine 5 MG TAB PO SCH (14:00)
[2021-06-28] MEDS: HumaLOG 300 UNITS/3 ML VIAL SC PRN ×4 (04:37→20:06)
[2021-06-28 07:13] LABS: Anion Gap 12 mmol/L (10-20); BUN (Urea Nitrogen) 11 mg/dL (7.0-18.7); Calc. Creatinine Clearance 230 mL/min (70-130); Calcium 7.4 mg/dL (7.8-10.44); Carbon Dioxide 25 mmol/L (22-29); Chloride 99 mmol/L (98-107); Glucose 383 mg/dL (70-105); Potassium 3.7 mmol/L (3.5-5.1); Sodium 132 mmol/L (136-145)
[2021-06-28] MEDS: Lantus 1000 UNITS/10 ML VIAL SC SCH ×2 (08:17→20:06)
[2021-06-28] MEDS: Glimepiride 2 MG TAB PO SCH (08:17)
[2021-06-28] MEDS: Lisinopril 5 MG TAB PO SCH (08:17)
[2021-06-28] MEDS: Amlodipine 5 MG TAB PO SCH (08:17)
[2021-06-28] MEDS: metFORMIN 500 MG TAB PO SCH ×2 (08:17→16:29)
[2021-06-28] MEDS: glipiZIDE 5 MG TAB PO SCH ×2 (08:17→16:29)
[2021-06-28] MEDS: cefTRIAXone\\ROCEPHIN 1 GM in Sodium Chloride 0.9% 100 ML IVPB SCH (12:16)
[2021-06-29] MEDS: HumaLOG 300 UNITS/3 ML VIAL SC PRN ×2 (05:57→12:02)
[2021-06-29 07:21] LABS: Anion Gap 16 mmol/L (10-20); BUN (Urea Nitrogen) 9 mg/dL (7.0-18.7); Calc. Creatinine Clearance 241 mL/min (70-130); Calcium 7.6 mg/dL (7.8-10.44); Carbon Dioxide 20 mmol/L (22-29); Chloride 101 mmol/L (98-107); Glucose 324 mg/dL (70-105); Potassium 3.6 mmol/L (3.5-5.1); Sodium 133 mmol/L (136-145)
[2021-06-29] MEDS: metFORMIN 500 MG TAB PO SCH (08:03)
[2021-06-29] MEDS: Amlodipine 5 MG TAB PO SCH (08:03)
[2021-06-29] MEDS: Lisinopril 5 MG TAB PO SCH (08:03)
[2021-06-29] MEDS: Glimepiride 2 MG TAB PO SCH (08:03)
[2021-06-29] MEDS: glipiZIDE 5 MG TAB PO SCH (08:03)
[2021-06-29] MEDS ORDERED: Cipro 250 MG TAB PO SCH ×2 (08:15→20:00)
[2021-06-29] MEDS ORDERED: NPH, Human Insulin Isophane 300 UNIT/3 ML VIAL SC SCH (09:00)
[2021-06-29 13:06] VITALS: BP 129/84; TEMP 98.7
== END 2021-06-29 14:21 | disposition home or self-care (01) | DRG 638 ==
LOC: ERS 21:31 → ERHOLD 06-26 02:56 → IMCU/EMU 06-26 12:03 → T4-A 06-27 13:06
PROVIDERS: ADMIT Student in an Organized Health Care Education/Training Program; ATTEND Internal Medicine
DX: E11.10 Type 2 diabetes mellitus with ketoacidosis without coma (principal); Z68.45 Body mass index [BMI] 70 or greater, adult; E44.0 Moderate protein-calorie malnutrition; N17.9 Acute kidney failure, unspecified; E66.01 Morbid (severe) obesity due to excess calories; I10 Essential (primary) hypertension; D64.9 Anemia, unspecified; E86.0 Dehydration; E87.5 Hyperkalemia; Z79.899 Other long term (current) drug therapy; Z86.711 Personal history of pulmonary embolism; Z86.718 Personal history of other venous thrombosis and embolism
CPT/HCPCS: 36415; 36416; 80048; 80053; 81003; 81015; 82010; 82805; 82947; 83605; 83735; 84100; 85025; 87086; J0360; J0696; J1815; J1953; J3480; J3490; J7050

== ENCOUNTER 2022-03-16 19:37 | Emergency (ER) | payer OTHER, SELFPAY | END 2022-03-16 20:35 | disposition home or self-care (01) | LOC: ERS 19:37 | DX: K04.7 Periapical abscess without sinus (principal); I10 Essential (primary) hypertension; E11.9 Type 2 diabetes mellitus without complications; Z79.4 Long term (current) use of insulin; Z79.899 Other long term (current) drug therapy | CPT/HCPCS: 99282 ==

== ENCOUNTER 2022-07-19 08:43 | Inpatient (IN) | payer OTHER ==
[2022-07-19 09:26] LABS: Bacteria/HPF None Seen HPF (None Seen); Bilirubin Negative (Negative); Blood, Urine 3+ (Negative); Clarity Clear (Clear); Glucose, Urine (Dipstick) Greater than 1000 mg/dL (Negative); Ketone, Urine Negative (Negative); Leukocyte 250 Leu/uL (Negative); Nitrite Negative (Negative); Protein, Urine (Dipstick) 100 mg/dL (Neg-Trace); RBC/HPF Greater than 50 HPF (0-3); Squamous Epithelial 0-3 HPF (0-3); Urobilinogen Normal mg/dL (Less than 2)
[2022-07-19 09:35] LABS: #Basophils 0.1 thou/uL (0.0-0.2); #Eosinphils 0.2 thou/uL (0.0-0.7); #Lymphocytes 2.6 thou/uL (1.20-3.40); #Monocytes 0.6 thou/uL (0.11-0.59); #Neutrophils 4.1 thou/uL (1.40-6.50); %Basophils 0.7 % (0.0-1.0); %Eosinophils 3.3 % (0.0-10.0); %Lymphocytes 33.9 % (21.0-51.0); %Monocytes 7.7 % (0.0-10.0); %Neutrophils 54.5 % (42.0-75.0); Mean Corpuscular HGB CONC 31.7 g/dL (32.0-36.0); Mean Corpuscular Hemoglobin 30.3 pg (27.0-31.0); Mean Corpuscular Volume 95.6 fL (78.0-98.0); Mean Platelet Volume 8.6 fL (7.4-10.4); Platelet Count 234 thou/uL (130-400); RBC Distribution Width 15.3 % (11.5-14.5); Red Blood Cell (RBC) Count 3.97 mill/uL (4.20-5.40); White Blood Cell (WBC) Count 7.5 thou/uL (4.8-10.8)
[2022-07-19 09:47] LABS: ALT (SGPT) 29 U/L (8-55); AST (SGOT) 32 U/L (5-34); Albumin 3.5 g/dL (3.5-5.0); Alkaline Phosphatase 129 U/L (40-110); Anion Gap 19 mmol/L (10-20); BUN (Urea Nitrogen) 25 mg/dL (7.0-18.7); Bilirubin, Total 0.5 mg/dL (0.2-1.2); Calc. Creatinine Clearance 0 mL/min (70-130); Calcium 9.3 mg/dL (7.8-10.44); Carbon Dioxide 22 mmol/L (22-29); Chloride 90 mmol/L (98-107); Estimated GFR 27; Globulin 4.9 g/dL (2.4-3.5); Magnesium 1.8 mg/dL (1.6-2.6); Phosphorus 3.8 mg/dL (2.3-4.7); Potassium 5.2 mmol/L (3.5-5.1); Protein, Total 8.4 g/dL (6.0-8.3); Sodium 126 mmol/L (136-145)
[2022-07-19 09:58] LABS: Glucose 811 mg/dL (70-105)
[2022-07-19 10:27] LABS: Actual Bicarbonate (HCO3v) 27 mEq/L (22-28); Base Excess 1.5 mEq/L (-2.0 to +3.0); Calcium, Ionized (venous) 1.09 mmol/L (1.16-1.32); Chloride (VBG) 90 mmol/L (98-106); Hemoglobin (Hb) 12.2 g/dL (11.7-15.5); Potassium (VBG) 4.56 mmol/L (3.70-5.30); Sodium 127.1 mmol/L (133-146); pH (venous) 7.37 (7.32-7.43)
[2022-07-19] MEDS ORDERED: Insulin Regular 300 UNITS/3 ML VIAL ONE (10:50)
[2022-07-19] MEDS ORDERED: INSULIN REGULAR IN 0.9 % NACL 100 UNIT/100 ML BAG ONE (11:50)
[2022-07-19] MEDS ORDERED: Labetalol HCl 100 MG/20 ML VIAL ONE (11:50)
[2022-07-19] MEDS ORDERED: Dextrose 5% in Water 1,000 ML IV PRN (12:49)
[2022-07-19] MEDS ORDERED: Dextrose 50% Abboject 50 ML SYRINGE SLOW IVP PRN (12:49)
[2022-07-19] MEDS ORDERED: Acetaminophen 325 MG TAB PO PRN (12:53)
[2022-07-19] MEDS ORDERED: Ondansetron ODT 4 MG TAB PO PRN (12:53)
[2022-07-19] MEDS ORDERED: Labetalol HCl 100 MG/20 ML VIAL SLOW IVP PRN (13:05)
[2022-07-19] MEDS ORDERED: NS 0.9% w/ 20 MEQ KCL 1,000 ML IV PRN ×2 (13:14)
[2022-07-19] MEDS ORDERED: Electrolyte Replacement Protocol 1 EACH IVPB ONE (13:14)
[2022-07-19] MEDS ORDERED: D5 1/2 NS w/20 mEq KCL 1,000 ML IV PRN ×2 (13:14→14:44)
[2022-07-19] MEDS ORDERED: Sodium Chloride 0.9% 1,000 ML IV PRN ×4 (13:14)
[2022-07-19] MEDS ORDERED: Dextrose 5 %-0.45 % NaCl 1,000 ML IV PRN (13:14)
[2022-07-19] MEDS ORDERED: HUMULIN R 100 UNITS in Sodium Chloride 0.9% 100 ML IVPB SCH (13:15)
[2022-07-19] MEDS ORDERED: Sodium Chloride 0.9% 1,000 ML IV SCH (13:15)
[2022-07-19] MEDS ORDERED: Magnesium 2 GM/50 ML(in water) 2 GM in Premix Bag 1 BAG IVPB SCH (13:45)
[2022-07-19] MEDS ORDERED: Electrolyte Replacement Protocol FS PRN (13:45)
[2022-07-19 13:56] VITALS: BMI 99.2
[2022-07-19 14:04] LABS: Anion Gap 18 mmol/L (10-20); BUN (Urea Nitrogen) 23 mg/dL (7.0-18.7); Calc. Creatinine Clearance 171 mL/min (70-130); Calcium 9.7 mg/dL (7.8-10.44); Carbon Dioxide 23 mmol/L (22-29); Chloride 96 mmol/L (98-107); Estimated GFR 30; Glucose 458 mg/dL (70-105); Potassium 4.1 mmol/L (3.5-5.1); Sodium 133 mmol/L (136-145)
[2022-07-19] MEDS ORDERED: Insulin Glargine 30 UNITS/0.3 ML VIAL SC SCH (14:45)
[2022-07-19 18:02] LABS: Anion Gap 15 mmol/L (10-20); BUN (Urea Nitrogen) 22 mg/dL (7.0-18.7); Calc. Creatinine Clearance 182 mL/min (70-130); Calcium 9.4 mg/dL (7.8-10.44); Carbon Dioxide 26 mmol/L (22-29); Chloride 95 mmol/L (98-107); Estimated GFR 32; Glucose 489 mg/dL (70-105); Potassium 4.3 mmol/L (3.5-5.1); Sodium 132 mmol/L (136-145)
[2022-07-19] MEDS ORDERED: Amlodipine 10 MG TAB PO SCH (19:30)
[2022-07-19] MEDS ORDERED: Losartan 25 MG TAB PO SCH (19:30)
[2022-07-19] MEDS: HumaLOG 300 UNITS/3 ML VIAL SC PRN ×2 (19:48→22:36)
[2022-07-19] MEDS: NS 0.9% w/ 20 MEQ KCL 1,000 ML/1,000 ML BAG IV SCH (20:29)
[2022-07-19 21:55] LABS: Anion Gap 18 mmol/L (10-20); BUN (Urea Nitrogen) 20 mg/dL (7.0-18.7); Calc. Creatinine Clearance 179 mL/min (70-130); Carbon Dioxide 20 mmol/L (22-29); Chloride 98 mmol/L (98-107); Estimated GFR 32; Glucose 537 mg/dL (70-105); Potassium 4.8 mmol/L (3.5-5.1); Sodium 131 mmol/L (136-145)
[2022-07-20] MEDS: HumaLOG 300 UNITS/3 ML VIAL SC PRN ×3 (00:56→11:59)
[2022-07-20 04:27] LABS: Anion Gap 14 mmol/L (10-20); BUN (Urea Nitrogen) 20 mg/dL (7.0-18.7); Calc. Creatinine Clearance 201 mL/min (70-130); Calcium 9.1 mg/dL (7.8-10.44); Carbon Dioxide 24 mmol/L (22-29); Chloride 100 mmol/L (98-107); Estimated GFR 36; Glucose 335 mg/dL (70-105); Potassium 4.3 mmol/L (3.5-5.1); Sodium 134 mmol/L (136-145)
[2022-07-20 04:51] LABS: Magnesium 2.1 mg/dL (1.6-2.6)
[2022-07-20 05:05] LABS: Band 4 % (5-11); Eosinophils 3 % (0-10); Hemoglobin 12.1 g/dL (12.0-16.0); Lymphocytes 38 % (21-51); MDiff Complete? YES; Mean Corpuscular HGB CONC 31.6 g/dL (32.0-36.0); Mean Corpuscular Hemoglobin 30.6 pg (27.0-31.0); Mean Corpuscular Volume 96.9 fL (78.0-98.0); Mean Platelet Volume 8.4 fL (7.4-10.4); Monocytes 6 % (0-10); Neutrophil 49 % (42-75); Platelet Count 216 thou/uL (130-400); RBC Distribution Width 15.6 % (11.5-14.5); Red Blood Cell (RBC) Count 3.93 mill/uL (4.20-5.40); White Blood Cell (WBC) Count 8.7 thou/uL (4.8-10.8)
[2022-07-20] MEDS: NS 0.9% w/ 20 MEQ KCL 1,000 ML/1,000 ML BAG IV SCH (05:28)
[2022-07-20] MEDS ORDERED: Atorvastatin Calcium 40 MG TAB PO SCH (09:00)
[2022-07-20] MEDS ORDERED: Losartan 25 MG TAB PO SCH (09:00)
[2022-07-20] MEDS ORDERED: metFORMIN 500 MG TAB PO SCH (09:00)
[2022-07-20] MEDS ORDERED: Enoxaparin Sodium 40 MG/0.4 ML SYRINGE SC SCH (09:00)
[2022-07-20] MEDS ORDERED: Insulin Glargine 30 UNITS/0.3 ML VIAL SC SCH (09:00)
[2022-07-20] MEDS ORDERED: Enoxaparin Sodium 60 MG/0.6 ML SYRINGE SC SCH (09:00)
[2022-07-20] MEDS ORDERED: Amlodipine 5 MG TAB PO SCH (09:00)
[2022-07-20 15:30] VITALS: BP 145/98; TEMP 97.6
== END 2022-07-20 15:44 | disposition home or self-care (01) | DRG 638 ==
LOC: ERS 08:43 → IMCU/EMU 13:20 → T4-A 07-20 07:26
PROVIDERS: ADMIT Family Medicine; ATTEND Family Medicine
DX: E11.00 Type 2 diabetes mellitus with hyperosmolarity without nonketotic hyperglycemic-hyperosmolar coma (NKHHC) (principal); N17.9 Acute kidney failure, unspecified; E11.22 Type 2 diabetes mellitus with diabetic chronic kidney disease; N18.30 Chronic kidney disease, stage 3 unspecified; I12.9 Hypertensive chronic kidney disease with stage 1 through stage 4 chronic kidney disease, or unspecified chronic kidney disease; E78.5 Hyperlipidemia, unspecified; I16.0 Hypertensive urgency; D63.1 Anemia in chronic kidney disease; E86.0 Dehydration; Z79.84 Long term (current) use of oral hypoglycemic drugs; Z79.4 Long term (current) use of insulin; Z79.899 Other long term (current) drug therapy; Z87.891 Personal history of nicotine dependence; Z88.8 Allergy status to other drugs, medicaments and biological substances; Z98.890 Other specified postprocedural states; Z82.49 Family history of ischemic heart disease and other diseases of the circulatory system; Z83.3 Family history of diabetes mellitus
CPT/HCPCS: 36415; 36416; 80048; 80053; 81003; 81015; 82010; 82805; 83735; 83930; 84100; 85025; J1650; J1815; J3475; J3480

== ENCOUNTER 2022-09-22 17:00 | Outpatient (CLI) | payer OTHER | END 2022-09-22 17:01 | disposition home or self-care (01) | LOC: SLEEPLAB 17:00 | PROVIDERS: ATTEND Family Medicine | DX: G47.33 Obstructive sleep apnea (adult) (pediatric) (principal); R53.83 Other fatigue; R51.9 Headache, unspecified; I10 Essential (primary) hypertension; E11.9 Type 2 diabetes mellitus without complications; G47.10 Hypersomnia, unspecified; G47.00 Insomnia, unspecified; R06.83 Snoring; E66.9 Obesity, unspecified; Z68.45 Body mass index [BMI] 70 or greater, adult | CPT/HCPCS: 95811 ==

== ENCOUNTER 2022-10-04 22:49 | Inpatient (IN) | payer OTHER ==
[2022-10-04 23:39] LABS: #Eosinphils 0.1 thou/uL (0.0-0.7); #Lymphocytes 2.9 thou/uL (1.20-3.40); #Monocytes 0.7 thou/uL (0.11-0.59); #Neutrophils 5.9 thou/uL (1.40-6.50); %Basophils 0.2 % (0.0-1.0); %Eosinophils 1.5 % (0.0-10.0); %Monocytes 7.3 % (0.0-10.0); Hemoglobin 11.2 g/dL (12.0-16.0); Mean Corpuscular HGB CONC 31.3 g/dL (32.0-36.0); Mean Corpuscular Hemoglobin 29.7 pg (27.0-31.0); Mean Corpuscular Volume 94.9 fl (78.0-98.0); Mean Platelet Volume 8.3 fL (7.4-10.4); Platelet Count 374 10x3/uL (130-400); RBC Distribution Width 15.1 % (11.5-14.5); Red Blood Cell (RBC) Count 3.77 mill/uL (4.20-5.40); White Blood Cell (WBC) Count 9.7 10x3/uL (4.8-10.8)
[2022-10-05 00:01] LABS: ALT (SGPT) 18 U/L (8-55); AST (SGOT) 22 U/L (5-34); Albumin 3.3 g/dL (3.5-5.0); Alkaline Phosphatase 136 U/L (40-110); Anion Gap 20 mmol/L (10-20); BUN (Urea Nitrogen) 15 mg/dL (7.0-18.7); Bilirubin, Total 0.7 mg/dL (0.2-1.2); Calc. Creatinine Clearance 0 mL/min (70-130); Calcium 9.8 mg/dL (7.8-10.44); Carbon Dioxide 25 mmol/L (22-29); Chloride 86 mmol/L (98-107); Estimated GFR 26; Globulin 6.1 g/dL (2.4-3.5); Magnesium 1.9 mg/dL (1.6-2.6); Potassium 4.7 mmol/L (3.5-5.1); Protein, Total 9.4 g/dL (6.0-8.3); Sodium 126 mmol/L (136-145)
[2022-10-05 00:14] LABS: Glucose Greater than 800 mg/dL (70-105)
[2022-10-05 00:22] LABS: Phosphorus 4.8 mg/dL (2.3-4.7)
[2022-10-05 00:31] LABS: Bacteria/HPF None Seen HPF (None Seen); Bilirubin Negative (Negative); Blood, Urine 3+ (Negative); Clarity Clear (Clear); Glucose, Urine (Dipstick) Greater than 1000 mg/dL (Negative); Ketone, Urine Negative (Negative); Leukocyte 250 Leu/uL (Negative); Nitrite Negative (Negative); Protein, Urine (Dipstick) 50 mg/dL (Neg-Trace); RBC/HPF 21-50 HPF (0-3); Specific Gravity, Urine 1.024 (1.002-1.036); Squamous Epithelial 0-3 HPF (0-3); Urobilinogen Normal mg/dL (Less than 2); WBC/HPF Greater than 50 HPF (0-3); pH, Urine 5.5 (5.0-9.0)
[2022-10-05 00:34] LABS: Actual Bicarbonate (HCO3v) 27 mEq/L (22-28); Base Excess 1.5 mEq/L (-2.0 to +3.0); Calcium, Ionized (venous) 1.08 mmol/L (1.16-1.32); Chloride (VBG) 88 mmol/L (98-106); Hemoglobin (Hb) 12.4 g/dL (11.7-15.5); Potassium (VBG) 4.42 mmol/L (3.70-5.30); Sodium 128.4 mmol/L (133-146); pH (venous) 7.39 (7.32-7.43)
[2022-10-05] MEDS ORDERED: cefTRIAXone\\ROCEPHIN 1 GM VIAL ONE (01:01)
[2022-10-05] MEDS ORDERED: INSULIN REGULAR IN 0.9 % NACL 100 UNIT/100 ML BAG ONE (01:43)
[2022-10-05 01:45] LABS: SARS-CoV-2 NAA Rapid Test Not Detected (NotDetected)
[2022-10-05] MEDS ORDERED: Sodium Chloride 0.9% 1,000 ML IV PRN ×4 (02:13)
[2022-10-05] MEDS ORDERED: Acetaminophen 650 MG Suppository PR PRN (02:13)
[2022-10-05] MEDS ORDERED: Dextrose 5 %-0.45 % NaCl 1,000 ML IV PRN (02:13)
[2022-10-05] MEDS ORDERED: Calcium Carbonate 500 MG ChewTAB PO PRN (02:13)
[2022-10-05] MEDS ORDERED: D5 1/2 NS w/20 mEq KCL 1,000 ML IV PRN (02:13)
[2022-10-05] MEDS ORDERED: Acetaminophen 325 MG TAB PO PRN (02:13)
[2022-10-05] MEDS ORDERED: NS 0.9% w/ 20 MEQ KCL 1,000 ML IV PRN ×2 (02:13)
[2022-10-05] MEDS ORDERED: Ondansetron PF 4 MG/2 ML Vial IVP PRN (02:13)
[2022-10-05] MEDS ORDERED: Ondansetron ODT 4 MG TAB PO PRN (02:13)
[2022-10-05] MEDS ORDERED: Electrolyte Replacement Protocol 1 EACH IVPB ONE (02:13)
[2022-10-05] MEDS ORDERED: HUMULIN R 100 UNITS in Sodium Chloride 0.9% 100 ML IVPB SCH (02:15)
[2022-10-05 03:04] LABS: Anion Gap 13 mmol/L (10-20); BUN (Urea Nitrogen) 10 mg/dL (7.0-18.7); Calc. Creatinine Clearance 0 mL/min (70-130); Calcium 5.6 mg/dL (7.8-10.44); Carbon Dioxide 14 mmol/L (22-29); Chloride 112 mmol/L (98-107); Estimated GFR 68; Glucose 625 mg/dL (70-105); Potassium 2.8 mmol/L (3.5-5.1); Sodium 136 mmol/L (136-145)
[2022-10-05 03:16] VITALS: BMI 95.5
[2022-10-05] MEDS ORDERED: Potassium Chloride 20 MEQ TAB PO SCH ×2 (03:45→11:30)
[2022-10-05] MEDS ORDERED: Potassium Chloride 20 MEQ/100 ML PREMIX BAG ONE (04:00)
[2022-10-05] MEDS ORDERED: Potassium Chloride 20 MEQ TAB ONE (04:00)
[2022-10-05] MEDS: Potassium Chloride 20 MEQ in Premix Bag 1 BAG IVPB SCH ×2 (04:14→09:05)
[2022-10-05 05:45] LABS: Mean Corpuscular HGB CONC 30.8 g/dL (32.0-36.0); Mean Corpuscular Hemoglobin 29.2 pg (27.0-31.0); Mean Corpuscular Volume 94.8 fl (78.0-98.0); Platelet Count 323 10x3/uL (130-400); RBC Distribution Width 15.2 % (11.5-14.5); Red Blood Cell (RBC) Count 3.41 mill/uL (4.20-5.40); White Blood Cell (WBC) Count 11.3 10x3/uL (4.8-10.8)
[2022-10-05 06:19] LABS: Band 3 % (5-11); Hypochromia SLIGHT = 6-15 cells (100X) (0-5/hpf); Lymphocytes 20 % (21-51); MDiff Complete? YES; Monocytes 3 % (0-10); Neutrophil 74 % (42-75); Platelet Morphology Comment Appears Adequate
[2022-10-05 06:28] LABS: Anion Gap 19 mmol/L (10-20); BUN (Urea Nitrogen) 14 mg/dL (7.0-18.7); Calc. Creatinine Clearance 144 mL/min (70-130); Calcium 8.6 mg/dL (7.8-10.44); Carbon Dioxide 25 mmol/L (22-29); Chloride 88 mmol/L (98-107); Estimated GFR 32; Glucose 783 mg/dL (70-105); Potassium 4.8 mmol/L (3.5-5.1); Sodium 127 mmol/L (136-145)
[2022-10-05] MEDS ORDERED: Lactated Ringer's 1,000 ML IV SCH ×2 (08:15→11:30)
[2022-10-05] MEDS: Atorvastatin Calcium 40 MG TAB PO SCH (09:01)
[2022-10-05] MEDS: Amlodipine 5 MG TAB PO SCH (09:01)
[2022-10-05] MEDS: Enoxaparin Sodium 30 MG/0.3 ML SYRINGE SC SCH (09:03)
[2022-10-05 10:15] LABS: Anion Gap 20 mmol/L (10-20); BUN (Urea Nitrogen) 14 mg/dL (7.0-18.7); Calc. Creatinine Clearance 148 mL/min (70-130); Calcium 9.2 mg/dL (7.8-10.44); Carbon Dioxide 23 mmol/L (22-29); Chloride 92 mmol/L (98-107); Estimated GFR 33; Potassium 3.8 mmol/L (3.5-5.1); Sodium 131 mmol/L (136-145)
[2022-10-05 10:16] LABS: Glucose 590 mg/dL (70-105)
[2022-10-05] MEDS ORDERED: HumaLOG 300 UNITS/3 ML VIAL SC SCH ×3 (11:30→23:45)
[2022-10-05] MEDS ORDERED: Losartan 25 MG TAB PO SCH (13:15)
[2022-10-05 16:43] LABS: Anion Gap 17 mmol/L (10-20); BUN (Urea Nitrogen) 12 mg/dL (7.0-18.7); Calc. Creatinine Clearance 183 mL/min (70-130); Carbon Dioxide 22 mmol/L (22-29); Chloride 95 mmol/L (98-107); Estimated GFR 42; Potassium 4.5 mmol/L (3.5-5.1); Sodium 129 mmol/L (136-145)
[2022-10-05 16:50] LABS: Glucose 487 mg/dL (70-105)
[2022-10-05] MEDS: Lactated Ringer's 1,000 ML IV SCH ×2 (17:39→21:09)
[2022-10-05] MEDS: Insulin Glargine 30 UNITS/0.3 ML VIAL SC SCH (21:05)
[2022-10-05 22:15] LABS: Anion Gap 15 mmol/L (10-20); BUN (Urea Nitrogen) 10 mg/dL (7.0-18.7); Calc. Creatinine Clearance 198 mL/min (70-130); Calcium 9.2 mg/dL (7.8-10.44); Carbon Dioxide 25 mmol/L (22-29); Chloride 95 mmol/L (98-107); Estimated GFR 47; Glucose 356 mg/dL (70-105); Potassium 4.3 mmol/L (3.5-5.1); Sodium 131 mmol/L (136-145)
[2022-10-06] MEDS: Lactated Ringer's 1,000 ML IV SCH ×3 (01:36→09:15)
[2022-10-06 03:31] LABS: #Eosinphils 0.1 thou/uL (0.0-0.7); #Lymphocytes 2.9 thou/uL (1.20-3.40); #Monocytes 0.6 thou/uL (0.11-0.59); #Neutrophils 4.6 thou/uL (1.40-6.50); %Basophils 0.4 % (0.0-1.0); %Eosinophils 1.7 % (0.0-10.0); %Lymphocytes 34.6 % (21.0-51.0); %Monocytes 7.1 % (0.0-10.0); %Neutrophils 56.2 % (42.0-75.0); Hemoglobin 9.3 g/dL (12.0-16.0); Mean Corpuscular HGB CONC 31.9 g/dL (32.0-36.0); Mean Corpuscular Hemoglobin 29.8 pg (27.0-31.0); Mean Corpuscular Volume 93.3 fl (78.0-98.0); Mean Platelet Volume 7.7 fL (7.4-10.4); Platelet Count 290 10x3/uL (130-400); RBC Distribution Width 15.1 % (11.5-14.5); Red Blood Cell (RBC) Count 3.11 mill/uL (4.20-5.40); White Blood Cell (WBC) Count 8.2 10x3/uL (4.8-10.8)
[2022-10-06 03:54] LABS: Anion Gap 16 mmol/L (10-20); BUN (Urea Nitrogen) 9 mg/dL (7.0-18.7); Calc. Creatinine Clearance 221 mL/min (70-130); Calcium 8.9 mg/dL (7.8-10.44); Carbon Dioxide 24 mmol/L (22-29); Chloride 97 mmol/L (98-107); Estimated GFR 53; Glucose 282 mg/dL (70-105); Potassium 3.9 mmol/L (3.5-5.1); Sodium 133 mmol/L (136-145)
[2022-10-06] MEDS ORDERED: metFORMIN 500 MG TAB PO SCH (08:00)
[2022-10-06] MEDS ORDERED: HumaLOG 300 UNITS/3 ML VIAL SC SCH (08:00)
[2022-10-06] MEDS: Insulin Glargine 30 UNITS/0.3 ML VIAL SC SCH (09:07)
[2022-10-06] MEDS: Enoxaparin Sodium 30 MG/0.3 ML SYRINGE SC SCH (09:07)
[2022-10-06] MEDS: Atorvastatin Calcium 40 MG TAB PO SCH (09:09)
[2022-10-06] MEDS: Losartan 25 MG TAB PO SCH (09:09)
[2022-10-06] MEDS: Amlodipine 5 MG TAB PO SCH (09:10)
[2022-10-06] MEDS: HumaLOG 300 UNITS/3 ML VIAL SC SCH ×3 (09:16→16:56)
[2022-10-06] MEDS ORDERED: Dextrose 5% in Water 1,000 ML IV PRN (14:55)
[2022-10-06] MEDS ORDERED: Dextrose 50% Abboject 50 ML SYRINGE SLOW IVP PRN (14:55)
[2022-10-06] MEDS: Insulin Regular 300 UNITS/3 ML VIAL SC PRN (18:12)
[2022-10-06] MEDS ORDERED: Insulin Glargine 30 UNITS/0.3 ML VIAL SC SCH (21:00)
[2022-10-07] MEDS: Insulin Regular 300 UNITS/3 ML VIAL SC PRN ×2 (05:31→12:56)
[2022-10-07 07:39] LABS: #Eosinphils 0.2 thou/uL (0.0-0.7); #Lymphocytes 2.5 thou/uL (1.20-3.40); #Monocytes 0.7 thou/uL (0.11-0.59); #Neutrophils 4.5 thou/uL (1.40-6.50); %Eosinophils 2.2 % (0.0-10.0); %Lymphocytes 31.9 % (21.0-51.0); %Monocytes 9.1 % (0.0-10.0); %Neutrophils 56.8 % (42.0-75.0); Hemoglobin 9.2 g/dL (12.0-16.0); Mean Corpuscular HGB CONC 31.2 g/dL (32.0-36.0); Mean Corpuscular Hemoglobin 29.4 pg (27.0-31.0); Mean Platelet Volume 7.7 fL (7.4-10.4); Platelet Count 271 10x3/uL (130-400); RBC Distribution Width 15.2 % (11.5-14.5); Red Blood Cell (RBC) Count 3.14 mill/uL (4.20-5.40); White Blood Cell (WBC) Count 7.8 10x3/uL (4.8-10.8)
[2022-10-07 07:41] LABS: Anion Gap 11 mmol/L (10-20); BUN (Urea Nitrogen) 11 mg/dL (7.0-18.7); Calc. Creatinine Clearance 200 mL/min (70-130); Calcium 8.7 mg/dL (7.8-10.44); Carbon Dioxide 24 mmol/L (22-29); Chloride 98 mmol/L (98-107); Estimated GFR 47; Potassium 4.3 mmol/L (3.5-5.1); Sodium 129 mmol/L (136-145)
[2022-10-07 07:51] LABS: Glucose 450 mg/dL (70-105)
[2022-10-07] MEDS: Amlodipine 5 MG TAB PO SCH (08:26)
[2022-10-07] MEDS: HumaLOG 300 UNITS/3 ML VIAL SC SCH ×2 (08:27→12:11)
[2022-10-07] MEDS: Losartan 25 MG TAB PO SCH (08:27)
[2022-10-07] MEDS: Enoxaparin Sodium 30 MG/0.3 ML SYRINGE SC SCH (08:27)
[2022-10-07] MEDS: Atorvastatin Calcium 40 MG TAB PO SCH (08:27)
[2022-10-07] MEDS ORDERED: Insulin Glargine 30 UNITS/0.3 ML VIAL SC SCH ×4 (09:00→21:00)
[2022-10-07] MEDS ORDERED: metFORMIN 500 MG TAB PO SCH (09:00)
[2022-10-07 16:26] VITALS: BP 123/87; TEMP 98.7
[2022-10-07] MEDS ORDERED: HumaLOG 300 UNITS/3 ML VIAL SC SCH (17:00)
== END 2022-10-07 17:06 | disposition home or self-care (01) | DRG 638 ==
LOC: ERS 22:49 → ERHOLD 10-05 01:54 → IMCU/EMU 10-05 07:56 → OBSVTOIN 10-05 11:32 → T4-A 10-06 18:22
PROVIDERS: ADMIT Student in an Organized Health Care Education/Training Program; ATTEND Emergency Medicine
DX: E11.65 Type 2 diabetes mellitus with hyperglycemia (principal); E87.20 Acidosis, unspecified; N17.9 Acute kidney failure, unspecified; Z68.45 Body mass index [BMI] 70 or greater, adult; Z20.822 Contact with and (suspected) exposure to COVID-19; N18.30 Chronic kidney disease, stage 3 unspecified; E66.01 Morbid (severe) obesity due to excess calories; E78.5 Hyperlipidemia, unspecified; Z79.899 Other long term (current) drug therapy; Z79.84 Long term (current) use of oral hypoglycemic drugs; Z79.4 Long term (current) use of insulin; Z98.890 Other specified postprocedural states; Z83.3 Family history of diabetes mellitus; Z82.49 Family history of ischemic heart disease and other diseases of the circulatory system
CPT/HCPCS: 36415; 36416; 71045; 80048; 80053; 81003; 81015; 82010; 82040; 82805; 83605; 83735; 84100; 84145; 84484; 85025; 87040; 87086; 96374; J0696; J1650; J1815; J3480; J3490; J7120

== ENCOUNTER 2022-12-14 14:50 | Outpatient (CLI) | payer OTHER | END 2022-12-14 14:51 | disposition home or self-care (01) | LOC: DTY/OP 14:50 | PROVIDERS: ATTEND Surgery | DX: E66.01 Morbid (severe) obesity due to excess calories (principal) | CPT/HCPCS: 97802 ==

== ENCOUNTER 2022-12-19 19:00 | Outpatient (CLI) | payer OTHER | END 2022-12-19 19:01 | disposition home or self-care (01) | LOC: SLEEPLAB 19:00 | PROVIDERS: ATTEND Family Medicine | DX: G47.33 Obstructive sleep apnea (adult) (pediatric) (principal); R09.02 Hypoxemia | CPT/HCPCS: 95811 ==